=== PATIENT | female | born 1995 ===

== ENCOUNTER 2017-06-02 11:04 | Outpatient (CLI) | payer OTHER ==
--- NOTE | 2017-06-02 11:41 | Ultrasound Report ---
RIGHT BREAST ULTRASOUND: 06/02/17 11:04:00 CLINICAL: 21 year old with a palpable right breast mass. COMPARISON: None. FINDINGS: Ultrasound of the right breast(including all four quadrants and the retroareolar area) was performed and demonstrated and ovals solid heterogeneous hypoechoic mass with lobular contour at 2 o'clock 2 cm from the nipple. It measures 2.5 x 1.4 x 2.5 cm and correlates with the palpable lump. No other mass or cyst. Ultrasound of the right axilla demonstrated no suspicious lymph nodes. IMPRESSION: A probably benign 2.5 cm solid right breast mass at 2 o'clock. Sonographic features suggest benign fibroadenoma. BI-RADS 3 - - Probably Benign RECOMMENDATION: Six month followup right breast ultrasound to assess for a change in size.
== END 2017-06-02 11:05 | disposition home or self-care (01) ==
LOC: SPVWC 11:04
PROVIDERS: ATTEND Family Medicine
DX: N63 Unspecified lump in breast (principal)